=== PATIENT | male | born 1960 | race Caucasian/White ===

== ENCOUNTER 2017-10-16 00:01 | Emergency (ER) | payer MEDICARE, MEDICAID ==
[~2017-10-16] VITALS: Ht 175.3 cm; Wt 72.6 kg
[~2017-10-16 00:01] MED LIST: ALPRAZOLAM ER1 MG PO; DESYREL; DESYREL150 MG PO; HYDROCODON-ACE1 EAC7 PO; IBUPROFEN 800800 MG PO; LANTUS100 UNIT/M SUBQ; LORTAB 5-500 T1 EAC1 PO; NORCO 5-325 TA1 EACH PO; PENICILLIN V P500 MG PO; PENICILLIN VK500 M1 PO; PERCOCET 7.5-31 EACH PO; PROGRAF1 MG PO; TACROLIMUS1 MG PO; TRAZODONE 150150 M1 PO; [UNRECOGNIZED DRUG - REMARK]; alprazolam
[2017-10-16 00:05] VITALS: BP 147/98
[2017-10-16] MEDS ORDERED: BLOOD PRESSURE MED (00:13)
[2017-10-16] MEDS ORDERED: [UNRECOGNIZED DRUG - REMARK] (00:14)
[2017-10-16] MEDS ORDERED: FLEXERIL PO (00:33)
[2017-10-16] MEDS ORDERED: ZOCOR20 MG PO (00:48)
[2017-10-16] MEDS ORDERED: VITAMIN D1000 UNIT PO (00:49)
[2017-10-16] MEDS ORDERED: HUMALOG100 UNIT/1 SUBQ (00:50)
[2017-10-16] MEDS ORDERED: LANTUS SUBQ (00:51)
[2017-10-16] MEDS ORDERED: NYSTATIN1 EAC4 TOP (00:51)
[2017-10-16] MEDS ORDERED: HYDROCORTISO28.35 G1 TOP ×2 (00:52→00:59)
[2017-10-16] MEDS ORDERED: KETOCONAZOLE15 GM TOP (00:53)
[2017-10-16] MEDS ORDERED: BARRIER CREAM TOP (00:54)
[2017-10-16] MEDS ORDERED: REGLAN 10 MG TA10 MG PO (00:54)
[2017-10-16] MEDS ORDERED: CARAFATE 1 GM TA1 G1 (00:56)
[2017-10-16] MEDS ORDERED: CLARITIN10 MG PO (00:56)
[2017-10-16] MEDS ORDERED: UNICOMPLEX M TA1 TA1 PO (00:56)
[2017-10-16] MEDS ORDERED: OSTERA TABLET1 EAC1 PO (00:57)
[2017-10-16] MEDS ORDERED: BACLOFEN20 MG PO (00:57)
[2017-10-16] MEDS ORDERED: PROTONIX40 M1 PO (00:58)
[2017-10-16] MEDS ORDERED: EUCERIN CREME57 GM TOP (01:00)
[2017-10-16] MEDS ORDERED: VITAMINC500 PO (01:00)
[2017-10-16] MEDS ORDERED: MIRALAX17 GM PO (01:01)
[2017-10-16] MEDS ORDERED: OYSTER SHELL 51 EACH PO (01:01)
[2017-10-16] MEDS ORDERED: ASPIR 8181 MG PO (01:02)
[2017-10-16] MEDS ORDERED: JANUVIA50 MG PO (01:02)
[2017-10-16] MEDS ORDERED: LISINOPRIL5 MG PO (01:02)
--- NOTE | 2017-10-16 15:06 | EKG ---
[place] [address] ELECTROCARDIOGRAM REPORT Name: TONI MCCARTHY II [id number] Admission: 10/16/17 Attend Phys: Discharge: 10/16/17 Date of : 62 Report #: [id number] THIS REPORT FOR: //name// [facility] ED Test Date: 2017-10-16 Test Time: 00:04:54 Pat Name: TONI MCCARTHY Department: Room: Gender: M [employer] Supervisor: JAXON : 1960 Requested By: Veronica Ayoub Order Number: [id number] Halina MD: Irvin Roy Measurements Intervals [place] Rate: 62 P: 75 IN: 152 QRS: 45 QRSD: 93 T: 40 QT: 420 QTc: 427 Interpretive Statements Sinus rhythm Consider left ventricular hypertrophy No previous ECG available for comparison Electronically Signed On 10-16-2017 15:05:59 CDT by Irvin Roy [email or web address] <ELECTRONICALLY SIGNED> By: Irvin Roy MD, [facility] 10/16/17 1505 0004 0004 Irvin Roy MD, FACC /EPI
== END 2017-10-16 00:49 | disposition left against medical advice (07) ==
LOC: M.ERS 00:01
DX: M25.512 Pain in left shoulder (principal); R07.89 Other chest pain; R00.2 Palpitations; E11.9 Type 2 diabetes mellitus without complications; F41.9 Anxiety disorder, unspecified; F32.9 Major depressive disorder, single episode, unspecified; F17.210 Nicotine dependence, cigarettes, uncomplicated; Z79.4 Long term (current) use of insulin; Z88.6 Allergy status to analgesic agent

== ENCOUNTER 2018-07-02 11:12 | Emergency (ER) | payer MEDICARE, MEDICAID ==
[~2018-07-02] VITALS: Ht 175.3 cm; Wt 74.8 kg
[~2018-07-02 11:12] MED LIST changes: +ASPIR 8181 MG PO; +BACLOFEN20 MG PO; +BARRIER CREAM TOP; +BLOOD PRESSURE MED; +CARAFATE 1 GM TA1 G1; +CLARITIN10 MG PO; +EUCERIN CREME57 GM TOP; +FLEXERIL PO; +HUMALOG100 UNIT/1 SUBQ; +HYDROCORTISO28.35 G1 TOP; +JANUVIA50 MG PO; +KETOCONAZOLE15 GM TOP; +LANTUS SUBQ; +LISINOPRIL5 MG PO; +MIRALAX17 GM PO; +NYSTATIN1 EAC4 TOP; +OSTERA TABLET1 EAC1 PO; +OYSTER SHELL 51 EACH PO; +PROTONIX40 M1 PO; +REGLAN 10 MG TA10 MG PO; +UNICOMPLEX M TA1 TA1 PO; +VITAMIN D1000 UNIT PO; +VITAMINC500 PO; +ZOCOR20 MG PO; +[UNRECOGNIZED DRUG - REMARK]
[2018-07-02] MEDS ORDERED: METFORMIN HCL500 MG (11:29)
[2018-07-02] MEDS ORDERED: PROGRAF0.2 MG (11:29)
[2018-07-02] MEDS ORDERED: PERCOCET 5-3251 EACH PO (13:55)
[2018-07-02 14:14] VITALS: BP 143/85
== END 2018-07-02 14:16 | disposition home or self-care (01) ==
LOC: M.ERS 11:12
DX: S80.01XA Contusion of right knee, initial encounter (principal); E11.9 Type 2 diabetes mellitus without complications; F41.9 Anxiety disorder, unspecified; F32.9 Major depressive disorder, single episode, unspecified; F17.210 Nicotine dependence, cigarettes, uncomplicated; Z88.5 Allergy status to narcotic agent; Z94.4 Liver transplant status; V18.4XXA Pedal cycle driver injured in noncollision transport accident in traffic accident, initial encounter; Y93.89 Activity, other specified; Y92.89 Other specified places as the place of occurrence of the external cause; Y99.8 Other external cause status

== ENCOUNTER 2018-08-04 17:22 | Emergency (ER) | payer MEDICARE, MEDICAID ==
[~2018-08-04] VITALS: Ht 175.3 cm; Wt 74.8 kg
[~2018-08-04 17:22] MED LIST changes: +METFORMIN HCL500 MG; +PERCOCET 5-3251 EACH PO; +PROGRAF0.2 MG
[2018-08-04] MEDS ORDERED: AUGMENTIN 875-1 EACH PO (17:47)
[2018-08-04] MEDS ORDERED: NORCO 5-325 TA1 EAC1 PO (17:48)
[2018-08-04 17:56] VITALS: BP 178/107
== END 2018-08-04 17:58 | disposition home or self-care (01) ==
LOC: M.ERS 17:22
DX: S80.811A Abrasion, right lower leg, initial encounter (principal); S80.812A Abrasion, left lower leg, initial encounter; L03.116 Cellulitis of left lower limb; L03.115 Cellulitis of right lower limb; F17.210 Nicotine dependence, cigarettes, uncomplicated; E11.9 Type 2 diabetes mellitus without complications; F41.9 Anxiety disorder, unspecified; F32.9 Major depressive disorder, single episode, unspecified; Z88.5 Allergy status to narcotic agent; W22.8XXA Striking against or struck by other objects, initial encounter; Y93.89 Activity, other specified; Y92.89 Other specified places as the place of occurrence of the external cause; Y99.8 Other external cause status